=== PATIENT | male | born 1985 | race African-American/Black ===

== ENCOUNTER 2019-05-01 23:41 | Emergency (ER) | payer SELFPAY ==
[2019-05-01] MEDS ORDERED: ALBUTEROL SULFATE 0.083% NEB 2.5 MG/3 ML AMPUL NEB ONE (23:57)
[2019-05-02] MEDS ORDERED: IPRATROPIUM/ALBUTEROL 0.5-2.5 MG/3 ML AMPUL NEB ONE (00:54)
[2019-05-02] MEDS ORDERED: PREDNISONE 20 MG TABLET PO ONE (00:54)
--- NOTE | 2019-05-02 00:57 | ER Document Report ---
ED General - General Chief Complaint: Shortness Of Breath Stated Complaint: DIFFICULTY BREATHING, TIGHT CHEST Time Seen by Provider: 05/02/19 00:50 Notes: Patient is a pleasant 33-year-old male presents with complaint of difficulty breathing and wheezing. Patient says for the last several days has had cold- like symptoms with runny nose cough and congestion. Today he started having some wheezing worsened throughout the day. He said he got to the point where he could not walk and speak coming for short of breath with any ambulation and therefore he came to the ER. Patient has a history of asthma as a child. He says that he seemed to have grown out of his asthma never had any issues since he was a child. He does not smoke. He does not drink. Is otherwise healthy and does not typically take medications. TRAVEL OUTSIDE OF THE [place] IN LAST 30 DAYS: No Past Medical History - Social History Smoking Status: Current Every Day Smoker Chew tobacco use (# tins/day): No Frequency of alcohol use: None Drug Abuse: None Family History: Reviewed & Not Pertinent Patient has suicidal ideation: No Patient has homicidal ideation: No Renal/ Medical History: Denies: Hx Peritoneal Dialysis Review of Systems - Review of Systems Notes: My Normal Review Basic REVIEW OF SYSTEMS: CONSTITUTIONAL : Denies fever, chills, or sweats. EENT: Some congestion RESPIRATORY: Cough and difficulty breathing and wheezing GASTROINTESTINAL: Denies abdominal pain. Denies nausea, vomiting, or diarrhea. Denies constipation. Last BM: MUSCULOSKELETAL: Denies neck or back pain or joint pain or swelling. SKIN: Denies rash or skin lesions. NEUROLOGICAL: Denies altered mental status or loss of consciousness. ALL OTHER SYSTEMS REVIEWED AND NEGATIVE. Physical Exam - Vital signs Vitals: Temp Pulse Resp BP Pulse Ox 98.4 F 102 H 22 H 135/69 H 94 05/01/19 23:46 05/01/19 23:46 05/01/19 23:46 05/01/19 23:46 05/01/19 23:46 - Notes Notes: General Appearance: Well nourished, alert, cooperative, no acute distress, no obvious discomfort. Well appearing Vitals: reviewed, See vital signs table. Eyes: PERRL, EOMI, Conjuctiva clear Mouth: No decreasd moisture Throat: No tonsillar inflammation, No airway obstruction, No lymphadenopathy Neck: Supple, no neck tenderness, No thyromegaly Lungs: diffuse wheezing, No rales, No rhonci, No accessory muscle use, fair air exchange bilaterally. Heart: Normal rate, Regular rythm, No murmur, no rub Abdomen: Normal BS, soft, No rigidity, No abdominal tenderness, No guarding, no rebound, no abdominal masses, no organomegaly Extremities: good pulses in all extremities, no swelling or tenderness in the extremities, no edema. Skin: warm, dry, appropriate color, no rash Neuro: speech clear, oriented x 3, normal affect, responds appropriately to questions. Course - Re-evaluation Re-evalutation: 05/02/19 02:49 On reevaluation patient's moving air better. He still has some scattered wheezing. He says he feels much improved. Clinically looks well. I will give him 1 more breathing treatment and then reassess to see if we can clear the remainder of his wheezing. 05/02/19 05:50 Patient's lung moreira are clear after the final breathing treatment. Looks well. I will place him on prednisone for next few days and given albuterol inhaler to use as needed. I encouraged him return to ER if he has wheezing not responding to inhaler, difficulty breathing, fevers, or if he feels that he is worsening in any way. Patient agrees with plan and will be discharged home. Dictation of this chart was performed using voice recognition software; therefore, there may be some unintended grammatical errors. - Vital Signs Vital signs: Temp Pulse Resp BP Pulse Ox 98.6 F 94 16 125/78 96 05/02/19 04:53 05/02/19 04:53 05/02/19 04:53 05/02/19 04:01 05/02/19 04:01 - EKG Interpretation by Me Additional EKG results interpreted by me: 05/02/19 00:57 EKG is reviewed and interpreted by me. EKG shows sinus rhythm with a rate of [address] segment elevation or depression. No ischemic T wave inversions. NE interval, QRS duration, QT intervals are within normal range. No old EKG available for comparison. Discharge - Discharge Clinical Impression: Wheezing Condition: Good Disposition: HOME, SELF-CARE Additional Instructions: Please use inhaler as 2 puffs every 2 hours as needed for wheezing. Take the prednisone as prescribed. Please return to the ER immediately if you have recurrent wheezing not responding to inhaler, difficulty breathing, fevers, or feel like you are worsening in any way. Prescriptions: RX: Prednisone [Deltasone 20 mg Tablet] 3 tab PO DAILY #9 tablet
--- NOTE | 2019-05-02 01:19 | RADIOLOGY REPORT (SQ) ---
CLINICAL HISTORY: cough COMPARISON: None. TECHNIQUE: XR CHEST 1 VIEW 05/02/2019 12:54 AM CDT FINDINGS: Cardiac silhouette is normal in size. Lungs are clear without consolidation, atelectasis, mass or edema. There is no pleural effusion. There is no pneumothorax. There are no acute osseous findings. IMPRESSION: Clear lungs.
[2019-05-02] MEDS ORDERED: ALBUTEROL SULFATE 0.083% NEB 2.5 MG/3 ML AMPUL NEB ONE (02:49)
[2019-05-02] MEDS ORDERED: ALBUTEROL SULFATE HFA (90 MCG/PUFF) 8 GM MDI (1 MDI/ER DISP) IH ONE (04:45)
[2019-05-02 04:47] VITALS: BP 125/78
--- NOTE | 2019-05-02 18:31 | EKG REPORT ---
SEVERITY:- NORMAL ECG - SINUS RHYTHM : Confirmed by: Amanda Suarez 02-May-2019 18:30:48
== END 2019-05-02 04:55 | disposition home or self-care (01) ==
LOC: ER 23:41
DX: R06.2 Wheezing (principal); R06.02 Shortness of breath; R09.89 Other specified symptoms and signs involving the circulatory and respiratory systems; R05 Cough; R09.81 Nasal congestion; F17.200 Nicotine dependence, unspecified, uncomplicated
CPT/HCPCS: 93005; 94640; 99285; 71045; 93010; J7512; J3490; J7620

== ENCOUNTER 2019-06-24 03:34 | Emergency (ER) | payer SELFPAY ==
[2019-06-24] MEDS ORDERED: METHYLPREDNISOLONE INJ 125 MG/2 ML SDV ONE (03:44)
[2019-06-24] MEDS ORDERED: ALBUTEROL SULFATE 0.083% NEB 2.5 MG/3 ML AMPUL NEB ONE (03:47)
[2019-06-24] MEDS ORDERED: IPRATROPIUM/ALBUTEROL 0.5-2.5 MG/3 ML AMPUL NEB ONE ×2 (03:47)
[2019-06-24] MEDS ORDERED: METHYLPREDNISOLONE INJ 125 MG/2 ML SDV IV ONE (03:47)
--- NOTE | 2019-06-24 03:53 | ER Document Report ---
ED General - General Chief Complaint: Shortness Of Breath Stated Complaint: TROUBLE BREATHING Time Seen by Provider: 06/24/19 03:47 Primary Care Provider: [facility] [Provider Group] - Follow up in 3-5 days TRAVEL OUTSIDE OF THE [place] IN LAST 30 DAYS: No - HPI Notes: Patient is a 33-year-old male that presents to the emergency department for chief complaint of shortness of breath. Patient states he woke up in the middle the night feeling short of breath. He does report history of asthma in the past. He does not currently have any albuterol at home. He states he has intermittently used albuterol inhaler but has not had a nebulizer machine since he was a child. He denies history of intubation for his asthma in the past. He states that he was feeling fine when he went to bed. Currently he feels chest tightness and wheezing. He denies any chest pain, palpitations, fever, cough/congestion, diaphoresis nausea or vomiting. Past Medical History: Asthma Past Surgical History: Right forearm laceration and aneurysm repair Social History: Denies drugs alcohol and tobacco Family History: Reviewed and noncontributory for presenting illness Allergies: Reviewed, see documented allergy list. REVIEW OF SYSTEMS: CONSTITUTIONAL : No fever No chills No diaphoresis No recent illness EENT: No vision changes No congestion No sore throat CARDIOVASCULAR: No chest pain No palpitations RESPIRATORY: shortness of breath No cough difficulty breathing GASTROINTESTINAL: No abdominal pain No nausea No vomiting No diarrhea GENITOURINARY: No dysuria No hematuria No difficulty urinating MUSCULOSKELETAL: No back pain No leg pain No arm pain SKIN: No rashes No lesions LYMPHATIC: No swollen, enlarged glands. NEUROLOGICAL: No lightheadedness No headache No weakness No paresthesias PSYCHIATRIC: No anxiety No depression PHYSICAL EXAMINATION: Vital signs reviewed, nursing noted reviewed. GENERAL: Well-appearing, well-nourished and in no acute distress. HEAD: Atraumatic, normocephalic. EYES: Eyes appear normal, extraocular movements intact, sclera anicteric, conjunctiva are normal. ENT: nares patent, oropharynx clear without exudates. Moist mucous membranes. NECK: Normal range of motion, supple without lymphadenopathy LUNGS: Tachypnea with mild accessory muscle use. Breath sounds diminished with expiratory wheezing to auscultation bilaterally and equal. No rales or rhonchi. HEART: Regular rate and rhythm without murmurs ABDOMEN: Soft, nontender, normoactive bowel sounds. No rebound, guarding, or rigidity. No masses appreciated. EXTREMITIES: Nontender, good range of motion, no pitting or edema. NEUROLOGICAL: No focal neurological deficits. Moves all extremities spontaneously Motor and sensory grossly intact on exam. PSYCH: Normal mood, normal affect. SKIN: Warm, Dry, normal turgor, no rashes or lesions noted on exposed skin - Related Data Allergies/Adverse Reactions: No Known Allergies Allergy (Verified 06/24/19 03:56) Past Medical History - Social History Smoking Status: Never Smoker Family History: Reviewed & Not Pertinent Pulmonary Medical History: Reports: Hx Asthma - as a child, now resolved Renal/ Medical History: Denies: Hx Peritoneal Dialysis Physical Exam - Vital signs Vitals: Temp Pulse Resp BP Pulse Ox 97.7 F 96 28 H 124/70 89 L 06/24/19 03:37 06/24/19 03:37 06/24/19 03:37 06/24/19 03:37 06/24/19 03:37 Course - Re-evaluation Re-evalutation: 06/24/19 03:51 Vitals reviewed. Nursing notes reviewed. Patient presented tachypneic and mildly hypoxic. He was placed on 2 L nasal cannula oxygen which improved his saturation to 95%. Patient given albuterol, DuoNeb and Solu-Medrol for his acute asthma exacerbation. He does have significant wheezing and history of asthma, he states this feels the same as previous asthma attacks. Current presentation consistent with asthma exacerbation. X-ray will be obtained to evaluate for underlying pneumothorax or pneumonia. 06/24/19 05:11 Patient reevaluated after aerosols. His lung sounds have significantly improved. He is now maintaining his oxygen saturation on room air. X-ray is negative for acute underlying cardiopulmonary process. Patient will be discharged home with prescription for albuterol inhaler, spacer, and prednisone. He was counseled on follow-up and return precautions. He is stable at discharge. Chest X-Ray 06/24/19 03:47 IMPRESSION: Clear lungs. - Vital Signs Vital signs: Temp Pulse Resp BP Pulse Ox 97.7 F 65 14 116/71 100 06/24/19 03:37 06/24/19 03:56 06/24/19 05:01 06/24/19 05:01 06/24/19 05:01 Discharge - Discharge Clinical Impression: Asthma exacerbation Qualifiers: Asthma severity: mild Asthma persistence: intermittent Qualified Code(s): J45.21 - Mild intermittent asthma with (acute) exacerbation Condition: Stable Disposition: HOME, SELF-CARE Instructions: Asthma ([facility]) Additional Instructions: Please return to the emergency department if you have any worsening, or concern of your symptoms. Please return to the emergency department if you develop chest pain, difficulty breathing, severe abdominal pain, or ongoing vomiting. Please follow-up with your primary care physician in 2-3 days and any other recommended physicians. If prescribed, take all medications as directed. If you have any questions or concerns do not hesitate to return the emergency department for evaluation. Use your albuterol inhaler with spacer 2 puffs every 4 hours as needed for sh ortness of breath and wheezing. If you are needing your inhaler more often than every 4 hours you should return to the ER. Begin taking your prednisone prescription tomorrow, your first dose of steroids was given in the emergency room today Prescriptions: Prednisone [Deltasone 20 mg Tablet] 2 tab PO DAILY 5 Days tablet Albuterol Sulfate [Proair HFA Inhalation Aerosol 8.5 gm MDI] 2 puff IH Q4H PRN #1 mdi PRN Reason: Inhaler, Assist Devices [Space Chamber Plus] 1 each MC Q4 #1 spacer Referrals: [facility] [Provider Group] - Follow up in 3-5 days
--- NOTE | 2019-06-24 04:14 | RADIOLOGY REPORT (SQ) ---
CLINICAL HISTORY: wheezing COMPARISON: None. TECHNIQUE: XR CHEST 1 VIEW 06/24/2019 3:47 AM CDT FINDINGS: Cardiac silhouette is normal in size. Lungs are clear without consolidation, atelectasis, mass or edema. There is no pleural effusion. There is no pneumothorax. There are no acute osseous findings. IMPRESSION: Clear lungs.
[2019-06-24] MEDS ORDERED: ALBUTEROL SULFATE HFA (90 MCG/PUFF) 8 GM MDI (1 MDI/ER DISP) IH PRN (05:18)
[2019-06-24 05:37] VITALS: BP 119/81
== END 2019-06-24 05:37 | disposition home or self-care (01) ==
LOC: ER 03:34
DX: J45.21 Mild intermittent asthma with (acute) exacerbation (principal); R06.02 Shortness of breath; R07.9 Chest pain, unspecified
CPT/HCPCS: 94640 ×2; 99284; 96374; 71045; J2930; J3490; J7620

== ENCOUNTER 2020-07-06 02:02 | Emergency (ER) | payer SELFPAY ==
[2020-07-06] MEDS: ALBUTEROL SULFATE 0.083% NEB 2.5 MG/3 ML AMPUL NEB SCH ×2 (02:23→02:56)
[2020-07-06] MEDS ORDERED: IPRATROPIUM/ALBUTEROL 0.5-2.5 MG/3 ML AMPUL NEB ONE (03:01)
[2020-07-06] MEDS ORDERED: PREDNISONE 20 MG TABLET PO ONE (03:04)
--- NOTE | 2020-07-06 03:09 | ER Document Report ---
ED General - General Chief Complaint: Asthma Exacerbation Stated Complaint: ASTHMA EXACERBATION Time Seen by Provider: 07/06/20 02:40 Primary Care Provider: [facility] [Provider Group] - Follow up as needed Mode of Arrival: Ambulatory Information source: Patient TRAVEL OUTSIDE OF THE [place] IN LAST 30 DAYS: No - HPI Notes: Patient is a 34-year-old male with a history of asthma and presents for shortness of breath and wheezing. Patient states he was trying to sleep when he became short of breath. He tried using a humidifier for relief but had no improvement. He reports chest tightness and intermittent cough but denies fever, chills, nasal congestion, and sore throat. Patient does not have a albuterol inhaler at home. He reports his last asthma exacerbation was in May 2019. He had 1 albuterol nebulized treatment upon arrival to the emergency department and afterwards he reports feeling much better. Patient is a former smoker and he last smoked in October 2019. - Related Data Allergies/Adverse Reactions: No Known Allergies Allergy (Verified 06/24/19 03:56) Past Medical History - General Information source: Patient - Social History Smoking Status: Former Smoker Chew tobacco use (# tins/day): No Frequency of alcohol use: None Drug Abuse: None Family History: Reviewed & Not Pertinent Pulmonary Medical History: Reports: Hx Asthma - as a child, now resolved Renal/ Medical History: Denies: Hx Peritoneal Dialysis Review of Systems - Review of Systems Constitutional: No symptoms reported EENT: See HPI Cardiovascular: No symptoms reported Respiratory: See HPI Gastrointestinal: No symptoms reported Genitourinary: No symptoms reported Male Genitourinary: No symptoms reported Musculoskeletal: No symptoms reported Skin: No symptoms reported Hematologic/Lymphatic: No symptoms reported Neurological/Psychological: No symptoms reported Physical Exam - Vital signs Vitals: Temp Pulse Resp BP Pulse Ox 98.3 F 91 18 115/78 96 07/06/20 02:10 07/06/20 02:10 07/06/20 02:07/06/20 02:07/06/20 02:10 - Notes Notes: PHYSICAL EXAMINATION: GENERAL: Well-appearing, well-nourished and in no acute distress. HEAD: Atraumatic, normocephalic. EYES: Pupils equal round and reactive to light, extraocular movements intact, sclera anicteric, conjunctiva are normal. ENT: nares patent, oropharynx clear without exudates. Moist mucous membranes. NECK: Normal range of motion, supple without lymphadenopathy LUNGS: Regular, non-labored respirations. Expiratory wheeze noted throughout, worse at the bases. No accessory muscle use. No intercostal retractions. HEART: Regular rate and rhythm without murmurs ABDOMEN: Soft, nontender, normoactive bowel sounds. No guarding, no rebound. No masses appreciated. EXTREMITIES: Normal range of motion, no pitting or edema. No cyanosis. NEUROLOGICAL: No focal neurological deficits. Moves all extremities spontaneously and on command. PSYCH: Normal mood, normal affect. SKIN: Warm, Dry, normal turgor, no rashes or lesions noted. Course - Re-evaluation Re-evalutation: Patient is a 34-year-old male with a history of asthma and presents for an asthma exacerbation. Upon arrival to the emergency department he received an albuterol nebulizer treatment. He reported immediate improvement in his breathing. On exam, respirations were regular and non-labored, but expiratory wheezing was noted throughout and worse at the bases. Two Duo-Neb treatments were ordered as well as Prednisone 60mg PO. 07/06/20 04:20 Patient is feeling much better and is ready to go home. On re- examination, patient's lungs are clear to auscultation. I believe patient is stable for discharge with a prescription for an albuterol inhaler and 5 days of prednisone. - Vital Signs Vital signs: Temp Pulse Resp BP Pulse Ox 98.3 F 91 17 118/70 99 07/06/20 02:10 07/06/20 02:10 07/06/20 04:01 07/06/20 04:01 07/06/20 04:01 Discharge - Discharge Clinical Impression: Wheezing, Shortness of breath Asthma exacerbation Qualifiers: Asthma severity: moderate Asthma persistence: unspecified Qualified Code(s): J 45.901 - Unspecified asthma with (acute) exacerbation Condition: Stable Disposition: HOME, SELF-CARE Additional Instructions: Asthma You were seen for an asthma exacerbation. Your symptoms improved with treatment here in the emergency department. However, it is very important that you return to the emergency department immediately if you began to have worsening difficulty breathing that does not respond to your normal home nebulizers. You are also being sent home on a five-day course of steroids that you should start taking tomorrow. Please also follow closely with your primary care physician. You should also return to emergency department if you develop fever greater than 101, persistent cough, persistent vomiting, pass out, or any other symptoms that are concerning to you. Prescriptions: Prednisone [Deltasone 20 mg Tablet] 60 mg PO DAILY 5 Days #15 tablet Albuterol Sulfate [Proair HFA Inhalation Aerosol 8.5 gm MDI] 1 puff IH Q4 PRN #1 mdi PRN Reason: Referrals: [facility] [Provider Group] - Follow up as needed
[2020-07-06 04:19] VITALS: BP 118/70
[2020-07-06] MEDS ORDERED: ALBUTEROL SULFATE HFA (90 MCG/PUFF) 8 GM MDI IH ONE (04:29)
== END 2020-07-06 04:38 | disposition home or self-care (01) ==
LOC: ER 02:02
DX: J45.901 Unspecified asthma with (acute) exacerbation (principal); R06.02 Shortness of breath
CPT/HCPCS: 94640 ×2; 99284; J7512; J7613; J3490

== ENCOUNTER 2020-09-02 18:50 | Emergency (ER) | payer SELFPAY ==
[2020-09-02] MEDS ORDERED: METHYLPREDNISOLONE INJ 125 MG/2 ML SDV IV ONE (19:22)
[2020-09-02] MEDS ORDERED: IPRATROPIUM/ALBUTEROL 0.5-2.5 MG/3 ML AMPUL NEB ONE (19:22)
--- NOTE | 2020-09-02 19:29 | ER Document Report ---
ED Medical Screen (RME) - General Chief Complaint: Shortness Of Breath Stated Complaint: SHORTNESS OF BREATH Time Seen by Provider: 09/02/20 19:20 Mode of Arrival: Wheelchair Information source: Patient Notes: 34-year-old male presented to ED for complaint of severe asthma exacerbation. He is very short of breath with the sats in the 80s-91 respiratory rate is 38 very tight lungs. Very diminished with inspiratory and expiratory wheezes. He is tripoding. He is unable to speak more than 1 or 2 word sentences. I have ordered Solu-Medrol DuoNeb albuterol monitor and chest x-ray. He will be seen by another provider. I have greeted and performed a rapid initial assessment of this patient. A comprehensive ED assessment and evaluation of the patient, analysis of test results and completion of medical decision making process will be conducted by an additional ED providers. TRAVEL OUTSIDE OF THE [place] IN LAST 30 DAYS: No - Related Data Allergies/Adverse Reactions: No Known Allergies Allergy (Verified 09/02/20 19:20) Past Medical History Pulmonary Medical History: Reports: Hx Asthma - as a child, now resolved Renal/ Medical History: Denies: Hx Peritoneal Dialysis Physical Exam - Vital signs Vitals: Temp Pulse Resp BP Pulse Ox 98.2 F 91 20 144/82 H 93 09/02/20 19:00 09/02/20 19:00 09/02/20 19:00 09/02/20 19:00 09/02/20 19:00 Course - Vital Signs Vital signs: Temp Pulse Resp BP Pulse Ox 98.2 F 91 20 144/82 H 93 09/02/20 19:00 09/02/20 19:00 09/02/20 19:00 09/02/20 19:00 09/02/20 19:00
[2020-09-02] MEDS: ALBUTEROL SULFATE 0.083% NEB 2.5 MG/3 ML AMPUL NEB SCH ×2 (19:35→19:46)
--- NOTE | 2020-09-02 20:04 | ER Document Report ---
ED General - General Chief Complaint: Shortness Of Breath Stated Complaint: SHORTNESS OF BREATH Time Seen by Provider: 09/02/20 19:20 Mode of Arrival: Wheelchair TRAVEL OUTSIDE OF THE [place] IN LAST 30 DAYS: No - HPI Notes: Patient is a 34-year-old male with a history of asthma who presents the emergency department for evaluation of increased shortness of breath. Patient has a history of asthma. He states he was outside but short of breath. He used his albuterol inhaler and laid down. He woke up and still felt short of breath. He does not use his albuterol inhaler every day. He has never been hospitalized or intubated for his asthma. He has had no fevers. No cough. No anosmia, no diarrhea. He states this all feels typical of his asthma. - Related Data Allergies/Adverse Reactions: No Known Allergies Allergy (Verified 09/02/20 19:20) Home Medications: albuterol Past Medical History - General Information source: Patient - Social History Smoking Status: Former Smoker Chew tobacco use (# tins/day): No Frequency of alcohol use: None Drug Abuse: None Family History: Reviewed & Not Pertinent Patient has homicidal ideation: No Pulmonary Medical History: Reports: Hx Asthma Renal/ Medical History: Denies: Hx Peritoneal Dialysis Past Surgical History: Reports: Hx Orthopedic Surgery - Right arm Review of Systems - Review of Systems Constitutional: No symptoms reported EENT: No symptoms reported Cardiovascular: No symptoms reported Respiratory: See HPI Gastrointestinal: No symptoms reported Genitourinary: No symptoms reported Musculoskeletal: No symptoms reported Skin: No symptoms reported Neurological/Psychological: No symptoms reported -: Yes All other systems reviewed and negative Physical Exam - Vital signs Vitals: Temp Pulse Resp BP Pulse Ox 98.2 F 91 20 144/82 H 93 09/02/20 19:00 09/02/20 19:00 09/02/20 19:00 09/02/20 19:00 09/02/20 19:00 - Notes Notes: Vital signs reviewed, please refer to chart. Head is normocephalic, atraumatic. Pupils equal round, reactive to light. Neck is supple without meningismus. Heart is regular rate and rhythm. Mild increased work of breathing noted, with mild tachypnea, but no accessory muscle use noted. Lungs reveal diminished breath sounds and expiratory wheezes throughout.. Abdomen is soft, nontender, normoactive bowel sounds throughout. Extremities without cyanosis, clubbing. Posterior calves are nontender. Peripheral pulses are equal. Skin is warm and dry. Patient is awake, alert, neurological exam is nonfocal. Course - Re-evaluation Re-evalutation: 09/02/20 20:05 Patient presents to the emergency department for evaluation. It sounds as if he has mild intermittent asthma. He is oxygenating well. He only has a mild increase in his respiratory rate at this time. He is receiving breathing treatments and steroids as ordered through triage. I did order magnesium as well. Preliminary evaluation of patient's chest x-ray is unremarkable. We will continue to monitor for response. 09/02/20 22:34 Patient feeling significantly improved after magnesium, although he does still continue to have some mild wheezing. He is 96% on room air. His respiratory rate is normal. He states he feels much better, feel safe going home. I will send him a prescription for another albuterol inhaler as well as prednisone. He is to follow-up close with primary care, return to the ED with worsening. - Vital Signs Vital signs: Temp Pulse Resp BP Pulse Ox 97.3 F 95 21 H 118/83 98 09/02/20 19:33 09/02/20 19:33 09/02/20 22:01 09/02/20 22:01 09/02/20 22:01 Discharge - Discharge Clinical Impression: Asthma exacerbation Qualifiers: Asthma severity: moderate Asthma persistence: unspecified Qualified Code(s): J45.901 - Unspecified asthma with (acute) exacerbation Condition: Stable Disposition: HOME, SELF-CARE Instructions: Asthma ([facility]) Additional Instructions: Please take medications as prescribed, take all the steroids as directed. Use your albuterol inhaler as needed. Follow-up with primary care next week. Return to the emergency department with worsening or new concerning symptoms of any sort.
[2020-09-02] MEDS: MAGNESIUM SULFATE/D5W 1 GM/100 ML RTUPB IV SCH ×2 (20:10→21:10)
--- NOTE | 2020-09-02 20:36 | RADIOLOGY REPORT (SQ) ---
EXAM DESCRIPTION: X-RAY CHEST- TWO VIEWS CLINICAL HISTORY: Shortness of breath COMPARISON: June 24, 2019 TECHNIQUE: 2 frontal views of the chest FINDINGS: There are overlying EKG leads. There are no discrete air space infiltrates, pneumothoraces or pleural effusions. The pulmonary vascularity is normal. The cardiomediastinal silhouette is normal in size. The osseous structures are stable. IMPRESSION: There are no acute lung parenchymal findings.
[2020-09-02 22:49] VITALS: BP 127/79
== END 2020-09-02 22:49 | disposition home or self-care (01) ==
LOC: ER 18:50
DX: J45.901 Unspecified asthma with (acute) exacerbation (principal)
CPT/HCPCS: 94640 ×2; 99284; 96375; 96365; 96366; 71045; J2930; J3475; J7613